=== PATIENT | female | born 1960 | race Caucasian/White ===

== ENCOUNTER → 2018-03-14 | Outpatient (CLI) | payer BC ==
--- NOTE | 2018-03-15 18:04 | Diagnostic Imaging Report ---
INDICATION: Routine. EXAMINATION: Digital mammogram bilateral screening with 3-D tomosynthesis. The current study was also evaluated with a Computer Aided Detection (CAD) system. This study was compared to prior exams of 02/12/2017 and 07/03/2013. At this time, there are no current complaints. The current study was also evaluated with a Computer Aided Detection (CAD) system. FINDINGS: The fibroglandular tissue in both breasts is heterogeneously dense. This does limit the sensitivity of this exam. Overall, there does not appear to have been any significant change when compared to the prior study. No primary or secondary sign of malignancy is noted. IMPRESSION: There is no radiographic evidence for malignancy. ACR BI-RADS Category 1: Negative. Result letter will be mailed to the patient. Note: At least 10% of breast cancer is not imaged by mammography. Dictated by: Dictated on workstation # [id number]
== END ==
LOC: RAD 07:35
PROVIDERS: ATTEND Obstetrics & Gynecology
DX: Z12.31 Encounter for screening mammogram for malignant neoplasm of breast (principal)
CPT/HCPCS: 77067

== ENCOUNTER → 2019-03-23 | Outpatient (CLI) | payer BC ==
--- NOTE | 2019-03-23 09:48 | Diagnostic Imaging Report ---
INDICATION: Routine screening. COMPARISON is made with prior mammograms from 03/14/2018 and 02/12/2017. 2-D and 3-D bilateral screening mammography was performed with CAD. Both breasts are heterogeneously dense, limiting the sensitivity of mammography. The parenchymal pattern is stable. No mass or malignant appearing microcalcifications are seen. There are benign calcifications. Axillae are unremarkable. IMPRESSION: BI-RADS Category 2 No mammographic features suspicious for malignancy are identified. ACR BI-RADS Category 2: Benign findings. Result letter will be mailed to the patient. Note: At least 10% of breast cancer is not imaged by mammography. Dictated by: Dictated on workstation # [id number]
== END ==
LOC: RAD 07:18
PROVIDERS: ATTEND Obstetrics & Gynecology
DX: Z12.31 Encounter for screening mammogram for malignant neoplasm of breast (principal)
CPT/HCPCS: 77067

== ENCOUNTER → 2020-06-04 | Outpatient (CLI) | payer BC ==
--- NOTE | 2020-06-04 12:32 | Diagnostic Imaging Report ---
INDICATION: Routine screening. Comparison is made prior mammogram 03/23/2019 and 03/14/2018. 2-D and 3-D bilateral screening mammography was performed with a Computer Aided Detection (CAD) system. 3-D tomosynthesis was also performed and reviewed. FINDINGS: Both breasts remain heterogeneously dense, limiting the sensitivity of mammography. There are benign calcifications in both breasts. No dominant mass or malignant appearing microcalcifications are seen. Axillae are unremarkable. IMPRESSION: No mammographic features suspicious for malignancy are identified. ACR BI-RADS Category 2: Benign findings. Result letter will be mailed to the patient. Note: At least 10% of breast cancer is not imaged by mammography. Dictated by: Dictated on workstation # [id number]
== END ==
LOC: RAD 07:45
PROVIDERS: ATTEND Obstetrics & Gynecology
DX: Z12.31 Encounter for screening mammogram for malignant neoplasm of breast (principal)
CPT/HCPCS: 77063; 77067

== ENCOUNTER → 2021-06-25 | Outpatient (CLI) | payer BC ==
--- NOTE | 2021-06-25 09:47 | Diagnostic Imaging Report ---
INDICATION: Routine screening. COMPARISON: 06/04/2020 and 03/23/2019. TECHNIQUE: 2D and 3D bilateral screening mammography was performed with CAD. FINDINGS: Both breasts are heterogeneously dense, limiting the sensitivity of mammography. The parenchymal pattern is unremarkable. No mass or malignant-appearing microcalcifications are seen. There are benign calcifications bilaterally. The axillae are unremarkable. IMPRESSION: No mammographic features suspicious for malignancy are identified. ACR BI-RADS Category 2: Benign findings. Result letter will be mailed to the patient. Note: At least 10% of breast cancer is not imaged by mammography. Dictated by: Dictated on workstation # [id number]
== END ==
LOC: RAD 07:45
PROVIDERS: ATTEND Obstetrics & Gynecology
DX: Z12.31 Encounter for screening mammogram for malignant neoplasm of breast (principal)
CPT/HCPCS: 77063; 77067

== ENCOUNTER → 2022-09-16 | Outpatient (CLI) | payer BC ==
--- NOTE | 2022-09-16 14:24 | Diagnostic Imaging Report ---
INDICATION: Routine screening. Comparison is made with prior mammogram 06/25/2021 and 06/04/2020. 2-D and 3-D bilateral screening mammography was performed with CAD. The current study was also evaluated with a Computer Aided Detection (CAD) system. Both breasts are heterogeneously dense, limiting the sensitivity of mammography. A density in the upper outer left breast does appear to be slightly more prominent on today's study. Additional views are recommended. There is a benign calcifications of the left breast. No malignant-appearing microcalcifications are seen. Axillae are unremarkable. IMPRESSION: BI-RADS Category 0 Left breast density, as described. Additional views are recommended. ACR BI-RADS Category 0: Incomplete. (Needs additional imaging evaluation). Result letter will be mailed to the patient. Note: At least 10% of breast cancer is not imaged by mammography. Dictated by: Dictated on workstation # [id number]
== END ==
LOC: RAD 07:19
PROVIDERS: ATTEND Obstetrics & Gynecology
DX: Z12.31 Encounter for screening mammogram for malignant neoplasm of breast (principal)
CPT/HCPCS: 77063; 77067

== ENCOUNTER → 2022-09-28 | Outpatient (CLI) | payer BC ==
--- NOTE | 2022-09-28 14:40 | Diagnostic Imaging Report ---
INDICATION: Left breast density. Patient presents for additional views. Correlation is made with the screening study from 09/16/2022. Unilateral left 2-D and 3-D diagnostic mammography was performed with CAD. This included spot compression CC and ML views as well as conventional 90 degrees lateral views. Additionally views show a persistent area of slightly irregular density in the upper and outer aspect of the left breast at mid depth approximately 8 cm from the nipple. There is a benign calcification in this area. There is questionable architectural distortion. No other masses are seen. No malignant-appearing microcalcifications are identified. Left axilla is unremarkable. IMPRESSION: Persistent irregularity and increased density and questionable architectural distortion in the upper outer left breast at mid depth. Further evaluation of this area with ultrasound is recommended and will be performed today. ACR BI-RADS Category 0: Incomplete. (Needs additional imaging evaluation). Result letter will be mailed to the patient. Note: At least 10% of breast cancer is not imaged by mammography. BI-RADS Category 0 Dictated by: Dictated on workstation # [id number]
--- NOTE | 2022-09-28 14:43 | Diagnostic Imaging Report ---
Indication: Abnormal left mammogram. Comparison is made with the diagnostic mammogram earlier the same day as well as the screening mammogram from 09/16/2022. Sonographic interrogation of the upper and outer aspect of the left breast was performed. There is an area of slightly irregular hypoechogenicity at the 2:00 location, 4 to 5 cm from the nipple. There does appear to be approximately 4 mm of benign calcifications either within or adjacent to this area. No abnormal vascularity is present. No other abnormalities are seen. IMPRESSION: BI-RADS Category 4 There is a slightly irregular region of hypoechogenicity at the 2:00 location left breast, likely corresponding to the abnormal area noted mammographically. This could potentially represent scar tissue from a prior biopsy. Even so, tissue sampling would be recommended. This would be amenable to ultrasound-guided core biopsy. ACR BI-RADS Category 4: Suspicious abnormality. Result letter will be mailed to the patient. Note: At least 10% of breast cancer is not imaged by mammography. Dictated by: Dictated on workstation # [id number]
== END ==
LOC: RAD 11:41
PROVIDERS: ATTEND Obstetrics & Gynecology
DX: R92.8 Other abnormal and inconclusive findings on diagnostic imaging of breast (principal); R92.2 Inconclusive mammogram
CPT/HCPCS: 76642; 77065; G0279

== ENCOUNTER → 2022-10-08 | Outpatient (CLI) | payer BC ==
[~2022-10-08] VITALS: Ht 152.4 cm; Wt 72.7 kg
[~2022-10-08] MED LIST: LIDOCAINE 1% INJ 10 ML VIAL INJ ONE; LIDOCAINE 1% INJ 10 ML VIAL ONE
--- NOTE | 2022-10-08 11:27 | Diagnostic Imaging Report ---
INDICATION: Left breast nodule and architectural distortion. Patient presents for ultrasound-guided biopsy. The patient was brought to the sonographic suite and placed on table in the supine position. Ultrasound imaging of the left breast was performed to evaluate appropriate entry site. Left breast was then prepped and draped in usual sterile fashion. Small amount 1% lidocaine was utilized for local anesthesia. A total of 6 core biopsies were obtained of the area of ill-defined hypoechogenicity at the 2 o'clock location of the left breast utilizing a 14-gauge Achieve needle. A marker clip was then deployed. The needle was removed and hemostasis was obtained. Patient tolerated procedure well with several post procedure mammograms in satisfactory condition. IMPRESSION: Successful ultrasound guided core biopsy of the ill-defined region of hypoechogenicity 2 o'clock location left breast. Pathology results are currently pending. Dictated by: Dictated on workstation # [id number]
--- NOTE | 2022-10-08 11:27 | Diagnostic Imaging Report ---
Indication: Left breast nodule and architectural distortion. Patient status post ultrasound guided biopsy. Unilateral left 2-D CC and ML mammography was performed after patient underwent ultrasound-guided biopsy. There is a marker clip in the upper outer left breast adjacent to the benign calcification. IMPRESSION: Marker clip placement upper outer left breast at mid depth, as described. Patient status post ultrasound-guided biopsy. Dictated by: Dictated on workstation # [id number]
== END ==
LOC: RAD 09:42
PROVIDERS: ATTEND Obstetrics & Gynecology
DX: N63.20 Unspecified lump in the left breast, unspecified quadrant (principal); R92.8 Other abnormal and inconclusive findings on diagnostic imaging of breast; Z98.82 Breast implant status
CPT/HCPCS: 19083; 77065; G0279